=== PATIENT | female | born 1970 | race African-American/Black ===

== ENCOUNTER 2017-01-13 02:09 | Emergency (ER) | payer OTHER ==
[~2017-01-13] VITALS: Ht 167.6 cm; Wt 79.4 kg
[~2017-01-13 02:09] MED LIST: ALBUTEROL SULF8.5 GM INH; ASPIR-LOW81 MG ORAL; AZITHROMYCIN250 MG ORAL; GABAPENTIN800 MG ORAL; GLIPIZIDE5 MG ORAL; IBUPROFEN600 MG ORAL; IBUPROFEN600 MG PO; IRON159 MG PO; METFORMIN HCL500 M1 ORAL; NKM; NORCO 5-325 TA1 EACH ORAL; NORCO 5-325 TA1 EACH PO; PROMETHAZINE-C118 M1 ORAL; [UNRECOGNIZED DRUG - REMARK]
[2017-01-13 02:10] VITALS: BP 132/92
[2017-01-13] MEDS ORDERED: VITAMIN D1000 UNI1 ORAL (02:13)
[2017-01-13] MEDS ORDERED: Famotidine 20 MG/ 2ML VIAL IVP ONE (02:30)
[2017-01-13] MEDS ORDERED: DiphenhydrAMINE 50mg/ml Inj IVP ONE (02:30)
[2017-01-13] MEDS ORDERED: Metoclopramide 10mg/2ml Inj IVP ONE (02:30)
[2017-01-13 02:45] LABS: MEAN CORPUSCULAR HEMOGLOBIN 30.1 PG (27.0-31.0); MEAN CORPUSCULAR HGB CONC 34.1 G/DL (32.0-36.0); MEAN CORPUSCULAR VOLUME 88 FL (80-99); MEAN PLATELET VOLUME 8.6 FL (6.5-10.1); PLATELET COUNT 175 K/UL (150-450); RED BLOOD COUNT 5.04 M/UL (4.20-5.40); RED CELL DISTRIBUTION WIDTH 13.1 % (11.6-14.8); WHITE BLOOD COUNT 3.6 K/UL (4.8-10.8)
[2017-01-13 02:53] LABS: INR 0.9 (0.9-1.1); PROTHROMBIN TIME 9.6 SEC (9.30-11.50)
--- NOTE | 2017-01-13 02:59 | Emergency Room Report ---
History of Present Illness General Chief Complaint: Nausea, Vomiting, and Diarrhea Source: Patient Present Illness HPI Patient presents with 3 weeks of vomiting. She recently had an evaluation for abdominal pain and vomiting at [place]. She had a CT done last February. They found a vaginal cyst that was incised. This was removed and she had to have corrective surgery the vaginal area. She states that she had colonoscopy done at [facility] where they apparently found C. difficile. They initially felt was ulcerative colitis. They treated her with Flagyl at that time. She is concerned about the possibility of cancer. States unable to keep down liquids however she's been smoking and smells of alcohol. Family report weight loss. No dysuria, diarrhea, hematochezia, melena, vomiting blood. She feels weak. No documented fevers. No joint pain. + anxiety and some depression and feeling stressed. Allergies: Coded Allergies: PENICILLINS (Verified Allergy, Severe, Altered Mental Status, 10/30/12) LISINOPRIL (Verified Adverse Reaction, Mild, COUGHS, 10/30/12) Patient History Past Medical History: see triage record Past Surgical History: other - vaginal cyst with reconstruction Social History: Reports: alcohol use, smoking Social History Narrative with daughter Now: No : 5 Para: 2 Reviewed Nursing Documentation: PMH: Agreed, PSxH: Agreed Nursing Documentation-PMH Hx Cardiac Problems: Yes - HF Hx Hypertension: Yes Hx Pacemaker: No Hx Asthma: No Hx COPD: No Hx Diabetes: Yes Hx Cancer: No Hx Gastrointestinal Problems: No Hx Dialysis: No Hx Neurological Problems: No Hx Cerebrovascular Accident: No Hx Seizures: No Review of Systems All Other Systems: negative except mentioned in HPI Physical Exam Vital Signs Date Time Temp Pulse Resp B/P Pulse Ox O2 Delivery O2 Flow Rate FiO2 01/13/17 02:06 97.2 80 16 132/92 100 Room Air Sp02 EP Interpretation: reviewed, normal General Appearance: well appearing, no apparent distress, GCS 15 Head: normocephalic Eyes: bilateral eye PERRL, bilateral eye Scleral Injection ENT: moist mucus membranes Neck: supple Respiratory: lungs clear, normal breath sounds Cardiovascular #1: regular rate, rhythm Cardiovascular #2: 2+ radial (R) Gastrointestinal: normal inspection, normal bowel sounds, no mass, non- distended, tenderness - minimal epigastric Musculoskeletal: back normal, gait/station normal, normal range of motion Neurologic: alert, oriented x3, grossly normal Psychiatric: depressed affect, anxious Skin: normal inspection, warm/dry Medical Decision Making Diagnostic Impression: Primary Impression: Vomiting Qualified Codes: R11.2 - Nausea with vomiting, unspecified Additional Impression: Alcohol abuse ER Course Patient presents with vomiting, weight loss and abdominal pain. Ddx: pancreatitis, gastritis, PUD, mass, colitis amongst others. Urgent evaluation with labs, UA, and review of [facility]. Treatment with zofran, pepcid, IV hydration and reglan/benadryl. Labs significant for low WBC, slightly elevated glucose and lipase, + amphetamine and alcohol. Xrays unremarkable. CT reviewed: Vaginal cyst/abscess - no other intraabdominal pathology. Improved with treatment. Discussed lab results (excluding amphetamine) with patient and family. Focus on AA/rehab. Patient and understand. Patient stable for outpatient observation and treatment. Laboratory Tests Test 01/13/17 02:25 01/13/17 03:00 01/13/17 03:24 White Blood Count 3.6 K/UL (4.8-10.8) L Red Blood Count 5.04 M/UL (4.20-5.40) Hemoglobin 15.2 G/DL (12.0-16.0) Hematocrit 44.5 % (37.0-47.0) Mean Corpuscular Volume 88 FL (80-99) Mean Corpuscular Hemoglobin 30.1 PG (27.0-31.0) Mean Corpuscular Hemoglobin Concent 34.1 G/DL (32.0-36.0) Red Cell Distribution Width 13.1 % (11.6-14.8) Platelet Count 175 K/UL (150-450) Mean Platelet Volume 8.6 FL (6.5-10.1) Neutrophils (%) (Auto) % (45.0-75.0) Lymphocytes (%) (Auto) % (20.0-45.0) Monocytes (%) (Auto) % (1.0-10.0) Eosinophils (%) (Auto) % (0.0-3.0) Basophils (%) (Auto) % (0.0-2.0) Prothrombin Time 9.6 SEC (9.30-11.50) Prothrombin Time INR 0.9 (0.9-1.1) PTT 26 SEC (23-33) Sodium Level 138 mEQ/L (135-145) Potassium Level 4.8 mEQ/L (3.4-4.9) Chloride Level 99 mEQ/L (98-107) Carbon Dioxide Level 20 mEQ/L (20-30) Anion Gap 19 (5-15) H Blood Urea Nitrogen 9 mg/dL (7-23) Creatinine 0.9 mg/dL (0.5-0.9) Estimate Glomerular Filtration Rate > 60 mL/min (>60) Glucose Level 161 mg/dL (74-106) H Calcium Level 9.0 mg/dL (8.6-10.2) Total Bilirubin 0.3 mg/dL (0.0-1.2) Aspartate Amino Transferase (AST) 46 U/L (5-40) H Alanine Aminotransferase (ALT) 33 U/L (3-33) Alkaline Phosphatase 70 U/L (35-104) Troponin I < 0.30 ng/mL (<=0.30) Total Protein 9.3 g/dL (6.6-8.7) H Albumin 4.3 g/dL (3.5-5.2) Globulin 5.0 g/dL Albumin/Globulin Ratio 0.8 (1.0-2.7) L Lipase 74 U/L (< 60) H Urine Opiates Screen Negative (NEGATIVE) Urine Barbiturates Screen Negative (NEGATIVE) Phencyclidine (PCP) Screen Negative (NEGATIVE) Urine Amphetamines Screen Positive (NEGATIVE) H Urine Benzodiazepines Screen Negative (NEGATIVE) Urine Cocaine Screen Negative (NEGATIVE) Urine Marijuana (THC) Screen Negative (NEGATIVE) Serum Alcohol 204 mg/dL Lactic Acid Level 1.50 mmol/L (0.66-2.22) Urine Color Pale yellow Urine Appearance Clear Urine pH 6.5 (4.5-8.0) Urine Specific Leslie 1.005 (1.005-1.035) Urine Protein Negative (NEGATIVE) Urine Glucose (UA) Negative (NEGATIVE) Urine Ketones Negative (NEGATIVE) Urine Occult Blood Negative (NEGATIVE) Urine Nitrite Negative (NEGATIVE) Urine Bilirubin Negative (NEGATIVE) Urine Urobilinogen Normal MG/DL (0.0-1.0) Urine Leukocyte Esterase Negative (NEGATIVE) EKG Diagnostic Results Rate: normal Rhythm: NSR ST Segments: no acute changes Rhythm Strip Diag. Results EP Interpretation: yes Rhythm: NSR, no PVC's, no ectopy, other Other X-Ray Diagnostic Results Other X-Ray Diagnostic Results : X-Ray Ordered: abd EP Interpretation: Yes Findings: other - NSBGP, no obstruction, no lung infiltrates Number of Views: 2 Last Vital Signs Date Time Temp Pulse Resp B/P Pulse Ox O2 Delivery O2 Flow Rate FiO2 01/13/17 04:10 97.8 95 18 140/89 100 Room Air Status: improved Disposition: HOME, SELF-CARE Condition: Improved Scripts Ondansetron Odt* (ZOFRAN ODT*) 4 Mg Tab.rapdis 4 MG ORAL Q8H Y for Nausea & Vomiting, #8 TAB 0 Refills Prov: Devon Layton M.D. 01/13/17 Famotidine (PEPCID) 20 Mg Tablet 20 MG ORAL DAILY, #30 TAB 0 Refills Prov: Devon Layton M.D. 01/13/17 Devon Layton M.D. Jan 13, 2017 02:59
[2017-01-13 03:00] LABS: ALANINE AMINOTRANSFERASE 33 U/L (3-33); ALBUMIN/GLOBULIN RATIO 0.8 (1.0-2.7); ANION GAP 19 (5-15); ASPARTATE AMINO TRANSFERASE 46 U/L (5-40); CARBON DIOXIDE 20 mEQ/L (20-30); CHLORIDE 99 mEQ/L (98-107); CREATININE 0.9 mg/dL (0.5-0.9); GLOMERULAR FILTRATION RATE > 60 mL/min (>60); HEMOLYSIS 213; LIPASE 74 U/L (< 60); POTASSIUM 4.8 mEQ/L (3.4-4.9); SODIUM 138 mEQ/L (135-145); TOTAL PROTEIN 9.3 g/dL (6.6-8.7)
[2017-01-13 03:01] LABS: TROPONIN I < 0.30 ng/mL (<=0.30)
[2017-01-13 03:45] LABS: APPEARANCE,URINE CLEAR; KETONES,URINE NEGATIVE (NEGATIVE); LEUKOCYTE ESTERASE ,URINE NEGATIVE (NEGATIVE); NITRITE,URINE NEGATIVE (NEGATIVE); PH,URINE 6.5 (4.5-8.0); UROBILINOGEN,URINE NORMAL MG/DL (0.0-1.0)
[2017-01-13 03:46] LABS: PROTEIN,URINE NEGATIVE (NEGATIVE)
[2017-01-13 04:10] VITALS: BP 140/89
[2017-01-13] MEDS ORDERED: ZOFRAN ODT4 MG ORAL (04:24)
[2017-01-13] MEDS ORDERED: PEPCID20 MG ORAL (04:24)
--- NOTE | 2017-01-13 11:40 | Diagnostic Imaging Report ---
Indication: Abdominal pain Comparison: None Single view of the abdomen obtained Findings: Bowel gas pattern is nonspecific. No mass, ectopic calcifications, or abnormal gas collections are identified. The bones are unremarkable. Impression: No acute findings
--- NOTE | 2017-01-16 11:36 | Cardiology Report ---
APPROVED REPORT EKG Measurement Heart [id number] Normal sinus rhythm Low voltage QRS Cannot rule out Anterior infarct, age undetermined Abnormal ECG
== END 2017-01-13 04:30 | disposition home or self-care (01) ==
LOC: EDBD 02:09 → EMR 02:27
DX: R11.10 Vomiting, unspecified (principal); F10.10 Alcohol abuse, uncomplicated; I50.9 Heart failure, unspecified; I10 Essential (primary) hypertension; Z88.0 Allergy status to penicillin; Z88.8 Allergy status to other drugs, medicaments and biological substances
CPT/HCPCS: 36415; 74000; 80053; 80300; 80329; 81003; 83605; 83690; 84484; 85025; 85610; 85730; 93005; 96374; 96375; 99284; J1200; J2405; J2765; S0028

== ENCOUNTER 2017-02-15 00:46 | Emergency (ER) | payer OTHER ==
[~2017-02-15] VITALS: Ht 167.6 cm; Wt 77.1 kg
[~2017-02-15 00:46] MED LIST changes: +PEPCID20 MG ORAL; +VITAMIN D1000 UNI1 ORAL; +ZOFRAN ODT4 MG ORAL
[2017-02-15] MEDS ORDERED: LOSARTAN POTASS25 MG ORAL (00:57)
[2017-02-15] MEDS ORDERED: Morphine Sulfate 4mg/ml Inj IM ONE (01:45)
[2017-02-15] MEDS ORDERED: HYDROCODON-ACE1 EA15 ORAL (01:49)
--- NOTE | 2017-02-15 01:49 | Emergency Room Report ---
History of Present Illness General Chief Complaint: Back Pain-No Injury Source: Patient Present Illness HPI Is a 46-year-old female with history hypertension and diabetes. She presents with back pain and right hip pain. Onset for the last week and half. No trauma. Worse with movement of her leg. No incontinence of bowel or urine. No fever or chills. Pain is 9/10. [id number] medication not helping. Allergies: Coded Allergies: PENICILLINS (Verified Allergy, Severe, Altered Mental Status, 10/30/12) LISINOPRIL (Verified Adverse Reaction, Mild, COUGHS, 10/30/12) Patient History Past Medical History: see triage record, old chart reviewed, DM, HTN Past Surgical History: none Pertinent Family History: none Social History: Reports: alcohol use, Denies: drug use - History of cocaine 17 years ago Last Menstrual Period: March 2016 Now: No : 5 Para: 2 Immunizations: other Reviewed Nursing Documentation: PMH: Agreed, PSxH: Agreed Nursing Documentation-PMH Past Medical History: No History, Except For Hx Cardiac Problems: Yes - HF, sciatic nerve Hx Hypertension: Yes Hx Pacemaker: No Hx Asthma: No Hx COPD: No Hx Diabetes: Yes Hx Cancer: No Hx Gastrointestinal Problems: No Hx Dialysis: No Hx Neurological Problems: No Hx Cerebrovascular Accident: No Hx Seizures: No Review of Systems Eye: Denies: blurred vision, eye pain ENT: Denies: ear pain, nose congestion, throat swelling Respiratory: Denies: cough, shortness of breath Cardiovascular: Denies: chest pain, palpitations Gastrointestinal: Denies: abdominal pain, diarrhea, nausea, vomiting Musculoskeletal: Reports: back pain, Denies: joint pain Skin: Denies: rash Neurological: Denies: headache, numbness Endocrine: Denies: increased thirst, increased urine Hematologic/Lymphatic: Denies: easy bruising All Other Systems: negative except mentioned in HPI Physical Exam Vital Signs Date Time Temp Pulse Resp B/P Pulse Ox O2 Delivery O2 Flow Rate FiO2 02/15/17 00:50 97.5 88 18 118/82 98 Room Air vitals normal Sp02 EP Interpretation: reviewed, normal General Appearance: well appearing, no apparent distress, alert Head: normocephalic, atraumatic Eyes: bilateral eye EOMI, bilateral eye PERRL ENT: hearing grossly normal, normal pharynx Neck: full range of motion, supple, no meningismus Respiratory: chest non-tender, lungs clear, normal breath sounds Cardiovascular #1: regular rate, rhythm, no murmur Gastrointestinal: normal bowel sounds, non tender, no mass, no organomegaly, no bruit, non-distended Musculoskeletal: back normal - Lower lumbar tenderness over the right side. No anesthesia. No percussive tenderness, gait/station normal, normal range of motion Neurologic: alert, oriented x3 Psychiatric: mood/affect normal Skin: warm/dry Medical Decision Making Diagnostic Impression: Primary Impression: Back pain Qualified Codes: M54.41 - Lumbago with sciatica, right side Additional Impression: Alcohol abuse ER Course Patient presents with exacerbation of chronic lower back pain. No evidence of cauda equina syndrome, spinal epidural abscess, or neoplastic process. Is no trauma. She is pretty adamant that she never did methamphetamine in the past. In December she has a positive drug screen. She want another one done today. This would not pipe changer. Last Vital Signs Date Time Temp Pulse Resp B/P Pulse Ox O2 Delivery O2 Flow Rate FiO2 02/15/17 00:50 97.5 88 18 118/82 98 Room Air Status: improved Disposition: HOME, SELF-CARE Scripts Hydrocodone/Acetaminophen 5-325* (HYDROCODONE/ACETAMINOPHEN 5-325*) 1 Each Tablet 1 TAB ORAL Q6H Y for For Pain, #20 TAB 0 Refills Prov: CARLO RODRIGUEZ M.D. 02/15/17 Referrals: BIN ARCEO,REFERRING (PCP) Patient Instructions: Back Pain, Adult Additional Instructions: Abstain from alcohol. Followup with your DrKrissy in 2-3 days. Return if worse. CARLO RODRIGUEZ M.D. Feb 15, 2017 01:49
[2017-02-15 02:01] VITALS: BP 124/81
[2017-02-15 02:02] VITALS: BP 124/81
== END 2017-02-15 02:04 | disposition home or self-care (01) ==
LOC: EMR 01:18
DX: M54.41 Lumbago with sciatica, right side (principal); I10 Essential (primary) hypertension; E11.9 Type 2 diabetes mellitus without complications; F10.10 Alcohol abuse, uncomplicated; Z88.0 Allergy status to penicillin; Z88.6 Allergy status to analgesic agent
CPT/HCPCS: 80300; 96372; 99283; J2270

== ENCOUNTER 2017-10-26 03:00 | Emergency (ER) | payer OTHER ==
[~2017-10-26] VITALS: Ht 167.6 cm; Wt 72.6 kg
[~2017-10-26 03:00] MED LIST changes: +HYDROCODON-ACE1 EA15 ORAL; +LOSARTAN POTASS25 MG ORAL
[2017-10-26 03:40] VITALS: BP 110/72
--- NOTE | 2017-10-26 03:50 | Emergency Room Report ---
History of Present Illness General Chief Complaint: Skin Rash/Abscess Source: Patient Present Illness HPI 47-year-old female, history of paronychias in the past, presenting with left thumb pain and swelling. States it has been going on for 2 days after she picked a hangnail. No fever no chills Allergies: Coded Allergies: PENICILLINS (Verified Allergy, Severe, Altered Mental Status, 10/26/17) LISINOPRIL (Verified Adverse Reaction, Mild, COUGHS, 10/26/17) Patient History Past Medical History: see triage record Past Surgical History: none Pertinent Family History: none Last Menstrual Period: n/a Reviewed Nursing Documentation: PMH: Agreed, PSxH: Agreed Nursing Documentation-PMH Hx Cardiac Problems: Yes - HF, sciatic nerve, lupus Hx Hypertension: Yes Hx Pacemaker: No Hx Asthma: No Hx COPD: No Hx Diabetes: Yes Hx Cancer: No Hx Gastrointestinal Problems: No Hx Dialysis: No Hx Neurological Problems: No Hx Cerebrovascular Accident: No Hx Seizures: No Review of Systems All Other Systems: negative except mentioned in HPI Physical Exam Vital Signs Date Time Temp Pulse Resp B/P (MAP) Pulse Ox O2 Delivery O2 Flow Rate FiO2 10/26/17 03:06 97.3 81 16 112/72 100 Room Air Sp02 EP Interpretation: reviewed, normal General Appearance: normal inspection, well appearing, no apparent distress, alert, GCS 15, non-toxic Head: normocephalic, atraumatic Eyes: bilateral eye normal inspection, bilateral eye PERRL, bilateral eye EOMI ENT: normal ENT inspection, normal pharynx, normal voice, moist mucus membranes Neck: normal inspection, full range of motion, supple Respiratory: normal inspection, lungs clear, normal breath sounds, no respiratory distress, no retraction, no wheezing, speaking full sentences, chest symmetrical Cardiovascular #1: normal inspection, regular rate, rhythm, normal capillary refill Cardiovascular #2: 2+ radial (R), 2+ radial (L) Gastrointestinal: normal inspection, non tender, soft, non-distended, no guarding Musculoskeletal: other - L thumb with very small paronychia lateral aspect Neurologic: normal inspection, alert, oriented x3, responsive, motor strength/ tone normal, sensory intact, normal gait, speech normal Psychiatric: normal inspection, judgement/insight normal, memory normal Skin: normal inspection, normal color, no rash, warm/dry, well hydrated, normal turgor Procedures Additional Procedure Procedure Narrative Procedure: Incision and drainage Betadine prep No local anesthesia 11 blade used to betty a left paronychia Less than 1 mL of purulent drainage Patient tolerated procedure well Medical Decision Making Diagnostic Impression: Primary Impression: Paronychia ER Course 47-year-old female with left thumb paronychia DDX: Left thumb very mild paronychia Plan: Incision and drainage ER course: Incision and drainage performed with less than 1 cc purulent drainage obtained. Disposition: Patient discharged to home Patient instructed to follow up in ED or primary care doctor's office to wound recheck in 48 hours without fail. Patient cautioned to return to ED if there is rapid spread of rash, high fever or chills. Patient verbalized understanding and agrees with plan. Please note that this Emergency Department Report was dictated using [employer] car operator technology software, occasionally this can lead to erroneous entry secondary to interpretation by the dictation equipment. Last Vital Signs Date Time Temp Pulse Resp B/P (MAP) Pulse Ox O2 Delivery O2 Flow Rate FiO2 10/26/17 03:40 97.3 72 16 110/72 100 Room Air Disposition: HOME, SELF-CARE Condition: Improved Referrals: BIN ARCEO,REFERRING (PCP) Patient Instructions: Alfredo Tello M.D. Oct 26, 2017 03:50
== END 2017-10-26 03:44 | disposition home or self-care (01) ==
LOC: EMR 03:42
DX: L03.012 Cellulitis of left finger (principal); R21 Rash and other nonspecific skin eruption; M79.645 Pain in left finger(s); M79.89 Other specified soft tissue disorders; Z88.0 Allergy status to penicillin; Z88.8 Allergy status to other drugs, medicaments and biological substances; I50.9 Heart failure, unspecified; I10 Essential (primary) hypertension; M32.9 Systemic lupus erythematosus, unspecified
CPT/HCPCS: 10060; 99284

== ENCOUNTER 2018-10-24 09:02 | Emergency (ER) | payer OTHER ==
[~2018-10-24] VITALS: Ht 167.6 cm; Wt 83.0 kg
[2018-10-24] MEDS ORDERED: PREDNISONE5 M4 PO (09:14)
[2018-10-24] MEDS ORDERED: JANUVIA50 MG ORAL (09:14)
[2018-10-24] MEDS ORDERED: NEURONTIN300 MG ORAL (09:16)
[2018-10-24] MEDS ORDERED: ADALAT10 MG ORAL (09:16)
[2018-10-24] MEDS ORDERED: Ipratropium 0.02% Inh Soln 2.5ml UD HHN ONE (09:30)
[2018-10-24] MEDS ORDERED: Albuterol ud Inhalation HHN ONE (09:30)
--- NOTE | 2018-10-24 09:33 | Emergency Room Report ---
History of Present Illness General Chief Complaint: Flu Like Symptoms Source: Patient Present Illness HPI Patient presents with complaints of cough and congestion Reports that 2 weeks ago she had flu symptoms that started to improve however more recently started having increased productive cough She also has pain with the cough Denies any sore throat denies any headache denies any neck pain or photophobia patient has a runny nose and congestion as well Denies any focal weakness Allergies: Coded Allergies: PENICILLINS (Verified Allergy, Severe, Altered Mental Status, 10/26/17) LISINOPRIL (Verified Adverse Reaction, Mild, COUGHS, 10/26/17) Patient History Past Medical History: see triage record Pertinent Family History: none Now: No Reviewed Nursing Documentation: PMH: Agreed; PSxH: Agreed Nursing Documentation-PMH Hx Cardiac Problems: Yes - HF, sciatic nerve, lupus Hx Hypertension: Yes Hx Pacemaker: No Hx Asthma: No Hx COPD: No Hx Diabetes: Yes Hx Cancer: No Hx Gastrointestinal Problems: No Hx Dialysis: No Hx Neurological Problems: No Hx Cerebrovascular Accident: No Hx Seizures: No Review of Systems All Other Systems: negative except mentioned in HPI Physical Exam Vital Signs Date Time Temp Pulse Resp B/P (MAP) Pulse Ox O2 Delivery O2 Flow Rate FiO2 10/24/18 09:06 98.2 75 18 146/84 100 Room Air Sp02 EP Interpretation: reviewed, normal General Appearance: well appearing, no apparent distress Head: normocephalic, atraumatic Eyes: bilateral eye PERRL, bilateral eye EOMI ENT: hearing grossly normal, normal pharynx, TMs + canals normal, uvula midline Neck: full range of motion, supple, no meningismus, no bony tend Respiratory: no rhonchi, no respiratory distress, no retraction, no accessory muscle use, crackles - Both lower lobes Cardiovascular #1: normal peripheral pulses, regular rate, rhythm, no edema, no gallop, no JVD, no murmur Gastrointestinal: normal bowel sounds, non tender, soft, no mass, no organomegaly, non-distended, no guarding, no hernia, no pulsatile mass, no rebound Musculoskeletal: normal inspection Neurologic: oriented x3, responsive, operations superintendent III-XII nml as tested, motor strength/ tone normal, sensory intact Psychiatric: mood/affect normal Skin: normal color, no rash, warm/dry, palpation normal Lymphatic: normal inspection, no adenopathy Medical Decision Making Diagnostic Impression: Primary Impression: Community acquired pneumonia ER Course Patient has clinical findings consistent with mainly acquired pneumonia Saturation and respiratory effort are otherwise appropriate Patient did not meet criteria for emergency imaging and will have initial outpatient conservative outpatient trial Last Vital Signs Date Time Temp Pulse Resp B/P (MAP) Pulse Ox O2 Delivery O2 Flow Rate FiO2 10/24/18 09:06 98.2 75 18 146/84 100 Room Air Status: improved Disposition: HOME, SELF-CARE Condition: Improved Scripts Dextromethorphan Hb/Doxylamine (ROBITUSSIN NIGHTTIME COUGH DM) 237 Ml Liquid 10 ML PO QHS for 5 Days, ML Prov: Rosalino Rubin DO 10/24/18 Levofloxacin* (LEVAQUIN*) 750 Mg Tablet 750 MG ORAL DAILY for 7 Days, TAB Prov: Rosalino Rubin DO 10/24/18 Additional Instructions: Patient is provided with the discharge instructions notified to follow up with primary doctor in the next 2-3 days otherwise return to the er with any worsening symptoms. Please note that this report is being documented using [employer] technology. This can lead to erroneous entry secondary to incorrect interpretation by the dictating instrument. Rosalino Rubin DO Oct 24, 2018 09:32
[2018-10-24] MEDS ORDERED: ROBITUSSIN NIG237 ML PO (09:59)
[2018-10-24] MEDS ORDERED: LEVAQUIN750 MG ORAL (09:59)
[2018-10-24 10:17] VITALS: BP 142/80
[2018-10-24 10:19] VITALS: BP 142/80
== END 2018-10-24 10:19 | disposition home or self-care (01) ==
LOC: EMR 09:32
DX: J18.9 Pneumonia, unspecified organism (principal); I10 Essential (primary) hypertension; E11.9 Type 2 diabetes mellitus without complications; Z88.0 Allergy status to penicillin; Z88.8 Allergy status to other drugs, medicaments and biological substances; M32.9 Systemic lupus erythematosus, unspecified
CPT/HCPCS: 94640; 94664; 99284

== ENCOUNTER 2019-01-27 17:49 | Emergency (ER) | payer OTHER ==
[~2019-01-27] VITALS: Ht 167.6 cm; Wt 81.6 kg
[~2019-01-27 17:49] MED LIST changes: +ACETAMINOPHEN-1 EAC1 ORAL; +ADALAT10 MG ORAL; +CLINDAMYCIN PHO30 GM TP; +DOXYCYCLINE MO100 MG ORAL; +JANUVIA50 MG ORAL; +LEVAQUIN750 MG ORAL; +LMX 515 GM TP; +NEURONTIN300 MG ORAL; +PREDNISONE5 M4 PO; +ROBITUSSIN NIG237 ML PO
[2019-01-27 18:00] VITALS: BP 152/83
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
--- NOTE | 2019-01-27 18:10 | Emergency Room Report ---
History of Present Illness General Chief Complaint: Multiple Trauma/Fall Source: Patient Present Illness HPI 48-year-old female patient presents ER complaining of head trauma status post mechanical fall earlier today. Reports that she was sitting in her walker facing her daughter who was pushing her and her walker hit a ledge and she fell backward and hit the back of her head. Denies loss of consciousness. Denies vomiting or vision changes. Reports the injury occurred approximately 1 hour ago. Reports that she was able to drive home after the incident. Reports history of lupus, states that she takes prednisone. Denies taking blood thinner medications. Denies other aggravating or relieving factors. Allergies: Coded Allergies: PENICILLINS (Verified Allergy, Severe, Altered Mental Status, 10/26/17) LISINOPRIL (Verified Adverse Reaction, Mild, COUGHS, 10/26/17) Patient History Past Medical History: see triage record Reviewed Nursing Documentation: PMH: Agreed; PSxH: Agreed Nursing Documentation-PMH Hx Cardiac Problems: Yes - HF, sciatic nerve, lupus Hx Hypertension: Yes Hx Pacemaker: No Hx Asthma: No Hx COPD: No Hx Diabetes: Yes Hx Cancer: No Hx Gastrointestinal Problems: No Hx Dialysis: No Hx Cerebrovascular Accident: No Hx Seizures: No Review of Systems All Other Systems: negative except mentioned in HPI Physical Exam Vital Signs Date Time Temp Pulse Resp B/P (MAP) Pulse Ox O2 Delivery O2 Flow Rate FiO2 01/27/19 17:54 98.2 100 19 152/83 95 Room Air Sp02 EP Interpretation: reviewed, normal Head: normocephalic, atraumatic, other - Negative [place] sign, negative raccoon eyes, no skull depression, tenderness palpation over posterior midline scalp, no hematoma, no laceration Eyes: bilateral eye normal inspection, bilateral eye PERRL ENT: hearing grossly normal, normal pharynx, no angioedema, normal voice, uvula midline, moist mucus membranes Neck: full range of motion, no bony tend Respiratory: lungs clear, normal breath sounds, no rhonchi, no respiratory distress, no accessory muscle use, no wheezing, speaking full sentences Cardiovascular #1: normal inspection, regular rate, rhythm, no edema Gastrointestinal: non tender, soft, no mass, non-distended, no guarding, no rebound Genitourinary: no CVA tenderness Musculoskeletal: back normal, digits/nails normal, gait/station normal, normal range of motion, non-tender Neurologic: alert, oriented x3, responsive, rotary adjuster III-XII nml as tested, motor strength/tone normal, sensory intact, cerebellar normal, normal gait, speech normal Psychiatric: mood/affect normal Skin: no rash Medical Decision Making PA Attestation Dr. Clarke is my supervising Physician whom patient management has been discussed with. Diagnostic Impression: Primary Impression: Head injury, acute ER Course Pt. presents to the ED c/o head trauma status post mechanical fall. Ddx considered but are not limited to ICH, skull fracture, basilar skull fracture, concussion, laceration, contusion. Vital signs: are WNL, pt. is afebrile ER COURSE: Provided with Motrin. CT head shows no intracranial hemorrhage, mass effect or CT evidence of acute infarct. Discuss results with the patient. Provided patient with copy of results. Instructed patient to followup with PCP and discuss results of report with patient, discuss need for further treatment and referral. Incidental finding of sinusitis, advised patient on Claritin and Benadryl use. Follow with ENT specialist. ER precautions given. DISCHARGE: At this time pt is stable for d/c to home. Patient is resting comfortably, in no acute distress, nontoxic appearing, talking without difficulty. Patient to take medications as instructed Will provide with patient care instructions and any necessary prescriptions. Care plan and follow-up instructions provided. Patient instructed to follow-up with primary care provider in 3 - 5 days. Patient questions asked and answered. Patient reports understanding and agreement to treatment plan. ER precautions given. Patient instructed to return to ER immediately for any new or worsening of symptoms including but not limited to increasing SOB, persistent fever, chest pain, intractable vomiting. - Please note that this Emergency Department Report was dictated using [employer] paraprofessional technology software, occasionally this can lead to erroneous entry secondary to interpretation by the dictation equipment. CT/MRI/US Diagnostic Results CT/MRI/US Diagnostic Results : Imaging Test Ordered: CT head Impression No intracranial hemorrhage, mass effect or CT evidence of acute infarct Ventricles are within limits and midline Mastoids and orbits appear within limits Partially imaged mild appearing left maxillary sinus disease Last Vital Signs Date Time Temp Pulse Resp B/P (MAP) Pulse Ox O2 Delivery O2 Flow Rate FiO2 01/27/19 17:54 98.2 100 19 152/83 95 Room Air Status: improved Disposition: HOME, SELF-CARE Condition: Stable Scripts Ibuprofen* (MOTRIN*) 600 Mg Tablet 600 MG ORAL Q8H PRN for For Pain, #30 TAB 0 Refills Prov: Yves Dorsey 01/27/19 Patient Instructions: Fall Prevention in the Home, [id number], Head Injury, Adult, [id number] Additional Instructions: Follow up with primary care physician in 1 - 2 days to discuss further treatment referral at that time. If you experience loss of consciousness, vision loss or intractable vomiting, return to ED immediately. Avoid screen time. Drink plenty of fluids. Apply ice to affected area to help prevent swelling. Take vykr-gmg-[id number] Claritin and Flonase for sinus symptoms. Avoid alcohol/drug use, rest. Take medications as directed. Patient questions asked and answered. ER precautions given, patient instructed to return to ER immediately for any new or worsening of symptoms. Yves Dorsey Jan 27, 2019 18:10
--- NOTE | 2019-01-27 19:10 | NUR ---
ED Nurse Note: Received report from Mikael/RN. Pt is A/O X 4. Will continue to monitor.
[2019-01-27] MEDS ORDERED: IBUPROFEN600 MG ORAL (19:30)
[2019-01-27 19:34] VITALS: BP 150/81
--- NOTE | 2019-01-27 19:34 | NUR ---
ER DISCHARGE NOTE: Patient is cleared to be discharged per Yves Dorsey/ JINA. CT of head done, no fracture was found at this time. Pt is A/O x4 on room air with stable vital signs. Pt was given D/C and prescription instructions, Pt was able to verbalize understanding, pt ID band removed. pt is able to ambulate with steady gait and took all belongings.Accompanied by her daughter.
--- NOTE | 2019-01-28 09:51 | Diagnostic Imaging Report ---
Indications: Head trauma, pain, status post mechanical fall Technique: Spiral acquisitions obtained through the brain. Angled axial and coronal 5 x 5 mm slices were reconstructed. Total dose length product 1267 mGycm. CTDI vol(s) 70.38 mGy. Dose reduction achieved using automated exposure control Comparison: None. Findings: No acute intracranial hemorrhage or edema, mass effect, nor midline shift. Normal size ventricles and extra axial CSF spaces. Normal garcia-white differentiation. Visualized orbits and sinuses are unremarkable. The mastoids are clear. Intact calvarium. Impression: Negative This agrees with the preliminary interpretation provided overnight by [facility] service. The CT scanner at [facility] is accredited by the [employer] and the scans are performed using protocols designed to limit radiation exposure to as low as reasonably achievable to attain images of sufficient resolution adequate for diagnostic evaluation.
== END 2019-01-27 19:34 | disposition home or self-care (01) ==
LOC: EMR 18:28
DX: S09.90XA Unspecified injury of head, initial encounter (principal); W05.0XXA Fall from non-moving wheelchair, initial encounter; Y92.89 Other specified places as the place of occurrence of the external cause; I10 Essential (primary) hypertension; M32.9 Systemic lupus erythematosus, unspecified; E11.9 Type 2 diabetes mellitus without complications; Z88.0 Allergy status to penicillin; Z88.8 Allergy status to other drugs, medicaments and biological substances
CPT/HCPCS: 70450; 99284

== ENCOUNTER 2019-03-17 10:01 | Emergency (ER) | payer OTHER ==
[~2019-03-17] VITALS: Ht 167.6 cm; Wt 82.6 kg
[2019-03-17 10:22] VITALS: BP 150/84
--- NOTE | 2019-03-17 10:27 | NUR ---
ED Nurse Note: Patient walked in to ER c/o SOB, coughing with yellow and thick mucus, diarrhea, abdominal pain 06/07. pt aao x4 and ambulatory. skin clean and intact. calm and cooperative. per pt, she has h/o PNA, respiratory infection for last 2 years and current symptoms feel the same as before. SOB noted when pt talks.
[2019-03-17] MEDS ORDERED: Albuterol ud Inhalation HHN ONE (11:15)
[2019-03-17] MEDS ORDERED: Ipratropium 0.02% Inh Soln 2.5ml UD HHN ONE (11:15)
--- NOTE | 2019-03-17 11:18 | NUR ---
ED Nurse Note: Patient getting breathing treatment in bed.
--- NOTE | 2019-03-17 11:50 | NUR ---
ED Nurse Note: ERMD at bedside speaking to the pt regarding discharg plan.
[2019-03-17 12:20] VITALS: BP 125/74
--- NOTE | 2019-03-17 12:20 | NUR ---
ER DISCHARGE NOTE: Patient is cleared to be discharged per ERMD, pt is aox4, on room air, with stable vital signs. pt was given dc instructions with network support administrator referral, pt was able to verbalize understanding, pt id band removed. pt is able to ambulate with steady gait. pt took all belongings.
--- NOTE | 2019-03-17 13:59 | Emergency Room Report ---
History of Present Illness General Chief Complaint: Upper Respiratory Illness Source: Patient Present Illness HPI Patient presents with family member who is here for forearm injury Patient has also presented to be seen for her cough She reports that she's had long-standing history of cough Has history of lupus and feels that it is related to her autoimmune disease as well Patient reports that recently she's had more phlegm production denies any vomiting or diarrhea denies any fevers or chills denies any posterior neck pain denies any rash Allergies: Coded Allergies: PENICILLINS (Verified Allergy, Severe, Altered Mental Status, 10/26/17) LISINOPRIL (Verified Adverse Reaction, Mild, COUGHS, 10/26/17) Patient History Past Medical History: see triage record Pertinent Family History: none Reviewed Nursing Documentation: PMH: Agreed; PSxH: Agreed Nursing Documentation-PMH Hx Cardiac Problems: Yes - chf, sciatic nerve, lupus Hx Hypertension: Yes Hx Pacemaker: No Hx Asthma: No Hx COPD: No Hx Diabetes: Yes Hx Cancer: No Hx Gastrointestinal Problems: No Hx Dialysis: No Hx Cerebrovascular Accident: No Hx Seizures: No Review of Systems All Other Systems: negative except mentioned in HPI Physical Exam Vital Signs Date Time Temp Pulse Resp B/P (MAP) Pulse Ox O2 Delivery O2 Flow Rate FiO2 03/17/19 10:11 97.7 77 20 93 Room Air 03/17/19 10:22 150/84 03/17/19 11:22 21 Sp02 EP Interpretation: reviewed, normal General Appearance: well appearing, no apparent distress Head: normocephalic, atraumatic Eyes: bilateral eye PERRL, bilateral eye EOMI ENT: hearing grossly normal, normal pharynx, TMs + canals normal, uvula midline Neck: full range of motion, supple, no meningismus, no bony tend Respiratory: lungs clear, normal breath sounds, no rhonchi, no respiratory distress, no retraction, no accessory muscle use Cardiovascular #1: normal peripheral pulses, regular rate, rhythm, no edema, no gallop, no JVD, no murmur Gastrointestinal: normal bowel sounds, non tender, soft, no mass, no organomegaly, non-distended, no guarding, no hernia, no pulsatile mass, no rebound Genitourinary: no CVA tenderness Musculoskeletal: normal inspection Neurologic: oriented x3, responsive, dope firer III-XII nml as tested, motor strength/ tone normal, sensory intact Psychiatric: mood/affect normal Skin: normal color, no rash, warm/dry, palpation normal Lymphatic: normal inspection, no adenopathy Medical Decision Making Diagnostic Impression: Primary Impression: Upper respiratory infection ER Course Multiple differentials including but not limited to URI, pneumonia, bronchitis considered On review of medical records patient has had multiple visits with similar complaint She reports that she has not seen a dowel pin man as of yet Her general repair mechanic is making appropriate follow-ups per the patient's reports However patient has had multiple input regarding the need for close follow-up Patient requesting breathing treatment at this time which was provided Also asking regarding cough syrup medication I discussed with her that with these presentations her primary physician would best be in position to discuss further input And stable for close follow-up Last Vital Signs Date Time Temp Pulse Resp B/P (MAP) Pulse Ox O2 Delivery O2 Flow Rate FiO2 03/17/19 12:20 98.2 91 16 125/74 99 Room Air 03/17/19 11:31 21 Status: improved Disposition: HOME, SELF-CARE Condition: Improved Referrals: NON PHYSICIAN (PCP) Stuart Rawls MD, Mirali MD Patient Instructions: Upper Respiratory Infection, Adult Additional Instructions: Patient is provided with the discharge instructions notified to follow up with primary doctor in the next 2-3 days otherwise return to the er with any worsening symptoms. Please note that this report is being documented using [employer] technology. This can lead to erroneous entry secondary to incorrect interpretation by the dictating instrument. Rosalino Rubin DO March 17, 2019 13:59
== END 2019-03-17 12:20 | disposition home or self-care (01) ==
LOC: EMR 10:50
DX: J06.9 Acute upper respiratory infection, unspecified (principal); Z88.0 Allergy status to penicillin; Z88.8 Allergy status to other drugs, medicaments and biological substances; I11.0 Hypertensive heart disease with heart failure; I50.9 Heart failure, unspecified; E11.9 Type 2 diabetes mellitus without complications
CPT/HCPCS: 94640; 99284